=== PATIENT | female | born 1980 | race Hispanic/Latino ===

== ENCOUNTER 2021-07-06 15:41 | Outpatient (CLI) | payer BC | END 2021-07-06 15:42 | disposition home or self-care (01) | LOC: CSHLAB 15:41 | PROVIDERS: ATTEND Obstetrics & Gynecology | DX: Z01.818 Encounter for other preprocedural examination (principal) | CPT/HCPCS: 84703; 85025; 86850; 86900; 86901; 93005; 93010; U0003; U0005 ==